=== PATIENT | female | born 1990 | race American Indian/Alaskan Native ===

== ENCOUNTER 2020-11-18 17:23 | Emergency (ER) | payer MEDICAID ==
[2020-11-18 17:51] VITALS: BP 119/86
[2020-11-18 18:22] LABS: Hematocrit 41.8 % (30.3-42.9); Mean Corpuscular HGB Conc 34 % (30-34); Mean Corpuscular Volume 93 fl (79-97); Platelet Count 323 K/mm3 (140-440); Red Blood Count 4.49 M/mm3 (3.65-5.03); Red Cell Distribution Width 14.9 % (13.2-15.2)
[2020-11-18 19:11] LABS: RBC Morphology Normal; Total Cells Counted 100
--- NOTE | 2020-11-18 21:40 | Ultrasound Report ---
PELVIC ULTRASOUND INDICATION: vag bleeding, 8 week 2 day COMPARISON: None pertinent available TECHNIQUE: Transabdominal FINDINGS: Uterus measures 7.8 cm in length. Endometrial stripe is thickened at 19 mm and mildly heter ogenous. No defined fluid collection is seen. I do not see an obvious gestational sac. Right ovary measures 3.4 cm in length and shows a 2 cm cyst with trace internal echoes. No increased vascularity is seen. Left ovary measures 2.5 cm in length and shows no abnormalities. No free fluid is seen. IMPRESSION: Intrauterine cannot be confirmed though possibly is just too early if clinical dating is incorrect. Given the history spontaneous is certainly possible and the heterogenou s appearance of the thickened endometrium could reflect mild hemorrhage. I cannot exclude ectopic pre gnancy though do not see strong evidence of that process. Clinical correlation and follow-up are need ed. Signer Name: Blake Cole MD Signed: 11/18/2020 9:36 PM Workstation Name: [id number]
--- NOTE | 2020-11-19 05:36 | Emergency Department Report ---
ED Female HPI - General Chief complaint: Vaginal Bleeding Stated complaint: VAG BLEED (PREG 5WKS) Time Seen by Provider: 11/19/20 04:45 Source: patient Mode of arrival: Ambulatory Limitations: No Limitations - History of Present Illness Initial comments: Chief complaint: I am passing clots HPI: This is a 30-year-old female who is currently approximately 7 to 8 weeks. Her last menstrual period was before September. She was di agnosed with at outside hospital 6 days ago on November 13. She has had spotting since that time. After last 24 hours she has had large amount of bleeding with large clots. She has mild right lower quadrant current pain. This is patient's third . She has had 2 healthy pregnancies both vaginally delivered. MD Complaint: vaginal bleeding, pelvic pain -: Gradual, days(s) (1), week(s) (Vaginal spotting 6 days ago) Location: RLQ Severity: moderate Quality: cramping Consistency: constant Improves with: none Worsens with: none Are you Now?: Yes - Related Data : 3 Para: 2 A: 0 Allergies Allergy/AdvReac Type Severity Reaction Status Date / Time No Known Allergies Allergy Unverified 11/18/20 17:51 ED Review of Systems ROS: Stated complaint: VAG BLEED (PREG 5WKS) Other details as noted in HPI Comment: All other systems reviewed and negative Constitutional: denies: fever, malaise Respiratory: denies: cough, shortness of breath Cardiovascular: denies: chest pain Gastrointestinal: abdominal pain ED Past Medical Hx - Past Medical History Previous Medical History?: No - Surgical History Past Surgical History?: No - Social History Smoking Status: Never Smoker Substance Use Type: Marijuana ED Physical Exam - General Limitations: No Limitations General appearance: alert, in no apparent distress - Head Head exam: Present: atraumatic, normocephalic - Eye Eye exam: Present: normal appearance - ENT ENT exam: Present: mucous membranes moist - Neck Neck exam: Present: normal inspection, full ROM - Respiratory Respiratory exam: Present: normal lung sounds bilaterally. Absent: respiratory distress, wheezes, rales, rhonchi - Cardiovascular Cardiovascular Exam: Present: regular rate, normal rhythm, normal heart sounds. Absent: systolic murmur, diastolic murmur, rubs, gallop - GI/Abdominal GI/Abdominal exam: Present: soft, normal bowel sounds. Absent: distended, tenderness, guarding, rebound - Extremities Exam Extremities exam: Present: normal inspection - Neurological Exam Neurological exam: Present: alert, oriented X3 - Psychiatric Psychiatric exam: Present: normal affect, normal mood - Skin Skin exam: Present: warm, dry, intact, normal color. Absent: rash ED Course Vital Signs 11/18/20 17:49 Temperature 98.5 F Pulse Rate 68 Respiratory 18 Rate Blood Pressure 119/86 O2 Sat by Pulse 98 Oximetry ED Medical Decision Making - Lab Data Result diagrams: 11/18/20 17:55 Laboratory Results - last 24 hr 11/18/20 11/18/20 11/18/20 17:55 17:55 Unknown WBC 5.1 RBC 4.49 Hgb 14.0 Hct 41.8 MCV 93 MCH 31 MCHC 34 RDW 14.9 Plt Count 323 [place] % (Auto) Dietitian Teacher Add Manual Diff Complete Total Counted 100 Seg Neuts % (Manual) 48.0 Lymphocytes % (Manual) 32.0 Monocytes % (Manual) 17.0 H Eosinophils % (Manual) 2.0 Basophils % (Manual) 1.0 Nucleated RBC % Not Reportable Seg Neutrophils # Man 2.4 Band Neutrophils # 0.0 Lymphocytes # (Manual) 1.6 Abs React Lymphs (Man) 0.0 Monocytes # (Manual) 0.9 H Eosinophils # (Manual) 0.1 Basophils # (Manual) 0.1 Metamyelocytes # 0.0 Myelocytes # 0.0 Promyelocytes # 0.0 Blast Cells # 0.0 WBC Morphology Not Reportable Hypersegmented Neuts Not Reportable Hyposegmented Neuts Not Reportable Hypogranular Neuts Not Reportable Smudge Cells Not Reportable Toxic Granulation Not Reportable Toxic Vacuolation Not Reportable Dohle Bodies Not Reportable Pelger-Huet Anomaly Not Reportable Efren Rods Not Reportable Platelet Estimate Not Reportable Clumped Platelets Not Reportable Plt Clumps, EDTA Not Reportable Large Platelets Not Reportable Giant Platelets Not Reportable Platelet Satelliting Not Reportable Plt Morphology Comment Not Reportable RBC Morphology Normal Dimorphic RBCs Not Reportable Polychromasia Not Reportable Hypochromasia Not Reportable Poikilocytosis Not Reportable Anisocytosis Not Reportable Microcytosis Not Reportable Macrocytosis Not Reportable Spherocytes Not Reportable Pappenheimer Bodies Not Reportable Sickle Cells Not Reportable Target Cells Not Reportable Tear Drop Cells Not Reportable Ovalocytes Not Reportable Helmet Cells Not Reportable [place] Bodies Not Reportable [place] Rings Not Reportable [place] Cells Not Reportable Bite Cells Not Reportable Crenated Cell Not Reportable Elliptocytes Not Reportable Acanthocytes (Spur) Not Reportable Rouleaux Not Reportable Hemoglobin C Crystals Not Reportable Schistocytes Not Reportable Malaria parasites Not Reportable Raj Bodies Not Reportable Hem Pathologist Commnt No HCG, Quant 377.3 H Blood Type A POSITIVE - Radiology Data Radiology results: report reviewed PELVIC ULTRASOUND INDICATION: vag bleeding, 8 week 2 day COMPARISON: None pertinent available TECHNIQUE: Transabdominal FINDINGS: Uterus measures 7.8 cm in length. Endometrial stripe is thickened at 19 mm and mildly heterogenous. No defined fluid collection is seen. I do not see an obvious gestational sac. Right ovary measures 3.4 cm in length and shows a 2 cm cyst with trace internal echoes. No increased vascularity is seen. Left ovary measures 2.5 cm in length and shows no abnormalities. No free fluid is seen. IMPRESSION: Intrauterine cannot be confirmed though possibly is just too early if clinical dating is incorrect. Given the history spontaneous is certainly possible and the heterogenous appearance of the thickened endometrium could reflect mild hemorrhage. I cannot exclude ectopic though do not see strong evidence of that process. Clinical correlation and follow-up are needed. - Medical Decision Making Spontaneous most likely diagnosis with low hCG level especially at 7 8 weeks gestation.. However with history of pain ectopic cannot be completely excluded. Patient understands to return in 2 days for repeat examination. Blood type B+ Critical care attestation.: If time is entered above; I have spent that time in minutes in the direct care of this critically ill patient, excluding procedure time. ED Disposition Clinical Impression: Threatened miscarriage Disposition: DC-01 TO HOME OR SELFCARE Is pt being admited?: No Does the pt Need Aspirin: No Condition: Stable Instructions: Threatened Miscarriage Additional Instructions: Please return to the emergency department 2 days to rule out ectopic tubal pre gnancy. Referrals: MIKALA ESPOSITO JR, MD [Staff Physician] - 3-5 Days
== END 2020-11-19 06:30 | disposition home or self-care (01) ==
LOC: ED 17:23
DX: O20.0 Threatened abortion (principal)
CPT/HCPCS: 36415; 76801; 84702; 85007; 85025; 86900; 86901